=== PATIENT | male | born 1975 | race Caucasian/White ===

== ENCOUNTER → 2017-12-08 | Outpatient (CLI) | payer OTHER ==
--- NOTE | 2017-12-12 13:04 | CPEEG ---
DATE OF STUDY: INTERPRETATION: Essentially normal EEG during wakefulness and sleep. There were no definite potentially epileptogenic abnormalities present during the awake or sleep recordings. During sleep, there were rare, sharply contoured waveforms of uncertain clinical significance over the left temporal head region. If clinically indicated, a repeat 4-hour video EEG study may be helpful to clarify the nature of these findings. REPORT: This EEG contains 10 Hz alpha activity of the posterior head regions. There was no abnormal activation at rest, during photic stimulation or hyperventilation. The patient became drowsy and fell asleep during the study. During drowsiness and sleep, there were rare, sharply contoured waveforms of uncertain clinical significance over the left temporal head region. If clinically indicated, a repeat 4-hour video EEG study to capture sustained sleep may be helpful to clarify the nature of these findings. Copy requested to: Dr. Maverick Keane [facility] /[id number]/MODL MTDD
== END ==
LOC: FCPNEURO 12:24
PROVIDERS: ATTEND Psychiatry & Neurology Neurology
DX: R56.9 Unspecified convulsions (principal)